=== PATIENT | female | born 2000 | race Caucasian/White ===

== ENCOUNTER 2025-04-07 14:08 | Emergency (ER) | payer SELFPAY ==
[~2025-04-07] VITALS: Ht 157.5 cm; Wt 51.7 kg
[2025-04-07 14:59] VITALS: TEMP 98.4
[2025-04-07] MEDS: SODIUM CHLORIDE 0.9% 1000ML 1,000 ML IV ONE (15:24)
[2025-04-07] MEDS: FAMOTIDINE 20 MG/2 ML VIAL IV STA (15:25)
[2025-04-07] MEDS: DONNATAL/LIDOCAINE/MAALOX 30 ML SUSP PO ONE (15:37)
[2025-04-07 15:39] LABS: BASOPHILS % 0.4 % (0.0-1.0); EOSINOPHILS % 0.4 % (0.0-6.0); LYMPHOCYTES % 33.6 % (18.0-39.1); MONOCYTES % 6.5 % (4.4-11.3); NEUTROPHILS % 58.1 % (38.7-80.0); RED CELL DISTRIBUTION WIDTH 11.9 % (11.7-14.4)
[2025-04-07 15:49] LABS: EST GLOMERULAR FILTRATION RATE 112 ML/MIN (>=60)
[2025-04-07 16:18] LABS: LEUKOCYTE ESTERASE ,URINE NEGATIVE (NEGATIVE); PROTEIN,URINE DIPSTICK NEGATIVE (NEGATIVE); URINE UROBILINOGEN 0.2 mg/dL (0.2 - 1)
[2025-04-07] MEDS: METOCLOPRAMIDE HCL 10 MG/2ML VIAL IV ONE (16:24)
[2025-04-07 16:40] LABS: EPITHELIAL CELLS,URINE FEW /LPF; WBC,URINE (MAN) 0-5 /HPF (0-5)
[2025-04-07] MEDS ORDERED: CARAFATE1 GM PO (17:04)
[2025-04-07] MEDS ORDERED: REGLAN10 MG PO (17:04)
[2025-04-07] MEDS ORDERED: PEPCID20 MG PO (17:04)
[2025-04-07 17:18] VITALS: PULSE 67; RESP 18
[2025-04-07 17:19] VITALS: BP 112/61; PULSE 67; RESP 18; O2SAT 100
== END 2025-04-07 17:14 | disposition home or self-care (01) ==
LOC: ER 15:02
DX: R10.13 Epigastric pain (principal); K29.70 Gastritis, unspecified, without bleeding; R11.2 Nausea with vomiting, unspecified; E03.9 Hypothyroidism, unspecified
CPT/HCPCS: 36415; 80053; 81001; 81003; 81025; 83690; 84702; 85025; 99283; J1308; J2765; J7030